=== PATIENT | male | born 1945 | race Caucasian/White ===

== ENCOUNTER 2020-08-01 21:28 | Observation (INO) ==
[2020-08-01 22:20] LABS: Basophils % 0.2 %; Eosinophils % 0.3 %; Hematocrit 31.4 % (37.5-50.1); Hemoglobin 9.5 g/dL (12.9-16.9); Immature Granulocytes % 0.7 % (0-4); Lymphocytes # 1.8 K/mcL (0.6-4.6); Lymphocytes % 20.6 %; Mean Corpuscular HGB Conc 30.3 g/dL (31.6-35.5); Mean Corpuscular Hemoglobin 29.3 pg (28.0-33.3); Mean Corpuscular Volume 96.9 fL (83.0-100.0); Monocytes # 0.6 K/mcL (0.0-1.3); Neutrophils # 6.1 K/mcL (1.6-8.9); Platelet Count 270 K/mcL (140-400); Red Blood Count 3.24 M/mcL (4.19-5.50); Red Cell Distribution Width 14.6 % (11.5-14.5); Segmented Neutrophils % 71.2 %; White Blood Count 8.6 K/mcL (4.3-11.1)
[2020-08-01 22:27] LABS: Prothrombin Time 11.2 Seconds (9.4-12.1)
[2020-08-01 22:30] LABS: Activated Partial Thrombo Time 26.9 Seconds (26.0-36.0)
[2020-08-01 22:41] LABS: BUN/Creatinine Ratio 19 (6-26); Blood Urea Nitrogen 13 mg/dL (8-23); Calcium 8.3 mg/dL (8.6-10.3); Carbon Dioxide 30 mEq/L (23-29); Chloride 104 mEq/L (98-107); Glucose 99 mg/dL (70-105); Osmolality,Calculated 290 (280-300); Potassium 4.2 mEq/L (3.5-5.1); Sodium 140 mEq/L (136-145); eGFR For African Americans > 60 (> 60); eGFR For Non-African Americans > 60 (> 60)
[2020-08-01 22:42] LABS: Troponin I < 0.03 ng/mL (< 0.04)
[2020-08-01] MEDS ORDERED: Aspirin 81 MG TAB.CHEW PO STA (22:53)
[2020-08-02] MEDS ORDERED: Naloxone 0.4 MG/ML INJ IVP PRN (00:06)
[2020-08-02] MEDS ORDERED: Ondansetron 4 MG/2 ML VIAL IVP PRN (00:06)
[2020-08-02] MEDS ORDERED: Acetaminophen 325 MG TABLET PO PRN ×2 (00:06→13:39)
[2020-08-02] MEDS ORDERED: Aspirin 325 MG TABLET PO ONE (01:13)
[2020-08-02] MEDS ORDERED: Benzonatate 100 MG CAPSULE PO PRN (05:59)
[2020-08-02] MEDS ORDERED: Albuterol 2.5 MG/3 ML NEBULIZER IH PRN (06:00)
[2020-08-02] MEDS ORDERED: *HR* Heparin 5,000 UNIT/ML VIAL SQ SCH (06:15)
[2020-08-02] MEDS ORDERED: Regadenoson 0.4 MG/5 ML SYRINGE IVP ONE (07:00)
[2020-08-02 07:19] LABS: Hematocrit 30.3 % (37.5-50.1); Hemoglobin 9.3 g/dL (12.9-16.9); Mean Corpuscular HGB Conc 30.7 g/dL (31.6-35.5); Mean Corpuscular Hemoglobin 29.7 pg (28.0-33.3); Mean Corpuscular Volume 96.8 fL (83.0-100.0); Mean Platelet Volume 10.5 fL (9.4-12.4); Platelet Count 283 K/mcL (140-400); Red Blood Count 3.13 M/mcL (4.19-5.50); Red Cell Distribution Width 14.7 % (11.5-14.5); White Blood Count 9.6 K/mcL (4.3-11.1)
[2020-08-02 07:46] LABS: Alanine Aminotransferase 10 Units/L (7-52); Albumin/Globulin Ratio 1.3 (1.1-2.2); Alkaline Phosphatase 54 Units/L (34-104); Aspartate Amino Transferase 15 Units/L (13-39); BUN/Creatinine Ratio 18 (6-26); Bilirubin,Total 0.2 mg/dL (0.3-1.0); Blood Urea Nitrogen 13 mg/dL (8-23); Calcium 8.2 mg/dL (8.6-10.3); Carbon Dioxide 29 mEq/L (23-29); Chloride 104 mEq/L (98-107); Globulin 2.3 g/dL (2.4-3.5); Glucose 81 mg/dL (70-105); Magnesium 1.9 mg/dL (1.6-2.6); Osmolality,Calculated 287 (280-300); Phosphorous 2.2 mg/dL (2.7-4.5); Potassium 4.4 mEq/L (3.5-5.1); Sodium 139 mEq/L (136-145); Total Protein 5.3 g/dL (6.4-8.9); Troponin I 0.03 ng/mL (< 0.04); eGFR For African Americans > 60 (> 60); eGFR For Non-African Americans > 60 (> 60)
[2020-08-02] MEDS ORDERED: Perflutren Lipid Microsphere 1.3 ML in 0.9 % Sodium Chloride 8.7 ML IVP PRN (09:00)
[2020-08-02 09:17] LABS: Cholesterol 245 mg/dL (< 200); HDL Cholesterol 41 mg/dL (40-59); Triglycerides 404 mg/dL (< 150)
[2020-08-02 11:52] VITALS: BP 110/63
[2020-08-02] MEDS ORDERED: Artificial Tears SOLN 15 ML BOTTLE BOTH EYES PRN (13:39)
[2020-08-02] MEDS ORDERED: Ipratropium/Albuterol Neb 3 ML IH SCH (13:45)
[2020-08-02 14:51] LABS: Estimated Average Glucose 126 mg/dl
[2020-08-02] MEDS ORDERED: Mirtazapine 15 MG TABLET PO SCH (21:00)
[2020-08-02] MEDS ORDERED: Sennosides/Docusate Sodium TABLET PO SCH (21:00)
[2020-08-02] MEDS ORDERED: Budesonide/Formoterol 160/4.5 1 PUFF INH IH SCH (22:00)
[2020-08-03] MEDS ORDERED: Cholecalciferol (D-3) 1,000 UNIT (25MCG) TABLET PO SCH (09:00)
[2020-08-03] MEDS ORDERED: Multivit/Ca/Min/Fe/FA 1 TAB TABLET PO SCH (09:00)
[2020-08-03] MEDS ORDERED: Fluticasone Propionate Nasal 50 MCG/SPRAY BOTTLE NS SCH (09:00)
[2020-08-03] MEDS ORDERED: predniSONE 10 MG TABLET PO SCH (09:00)
== END 2020-08-02 15:04 ==
LOC: EMEROOARM 21:28 → 3BNU 21:28 → SUATTDRO 23:36 → 3BNU 08-02 00:33
PROVIDERS: ADMIT Internal Medicine; ATTEND Internal Medicine